=== PATIENT | male | born 1985 | race Caucasian/White ===

== ENCOUNTER 2017-12-02 19:07 | Emergency (ER) | payer MEDICAID, OTHER ==
[2017-12-02 21:49] LABS: URINE BLOOD (Dip) POC Negative (NEGATIVE); URINE GLUCOSE (Dip) POC Negative (NEGATIVE); URINE KETONES (Dip) POC Negative (NEGATIVE); URINE LEUKOCYTE EST (Dip) POC Negative (NEGATIVE); URINE NITRITE (Dip) POC Negative (NEGATIVE); URINE TOTAL PROTEIN POC Negative (NEGATIVE)
== END 2017-12-02 23:37 | disposition home or self-care (01) ==
LOC: FTE 19:07
DX: G44.209 Tension-type headache, unspecified, not intractable (principal)
CPT/HCPCS: 70450; 81003; 99284-25

== ENCOUNTER 2019-01-13 16:27 | Emergency (ER) | payer SELFPAY, MEDICAID ==
[2019-01-13] MEDS: KETOROLAC 60 MG INJ IM (17:22)
== END 2019-01-13 17:44 | disposition home or self-care (01) ==
LOC: FTE 16:27
DX: L03.011 Cellulitis of right finger (principal); L03.116 Cellulitis of left lower limb
CPT/HCPCS: 96372; 99284-25